=== PATIENT | female | born 1985 | race Caucasian/White ===

== ENCOUNTER 2017-08-12 13:13 | Emergency (ER) | payer MEDICAID ==
[2017-08-12 13:14] VITALS: BMI 26.4
[2017-08-12 13:21] VITALS: TEMP 98.4
[2017-08-12 14:54] LABS: BASO # 0.1 K/uL (0.0-0.2); BASO % 0.7 % (0.0-2.0); EOS # 0.2 K/uL (0.0-0.7); EOS % 2.2 % (0.0-4.0); HEMOGLOBIN 12.4 g/dL (11.0-16.0); LYMPH # 2.9 K/uL (1.0-4.3); LYMPH % 28.5 % (20.0-40.0); MEAN CELL VOLUME 83.7 fL (81.0-99.0); MEAN CORPUSCULAR HEMOGLOBIN 28.8 pg (27.0-31.0); MEAN CORPUSCULAR HGB CONC 34.4 g/dL (33.0-37.0); MEAN PLATELET VOLUME 7.6 fL (7.2-11.7); MONO # 0.9 K/uL (0.0-0.8); MONO % 8.8 % (0.0-10.0); NEUT % 59.8 % (50.0-75.0); NRBC % 0.1 % (0.0-2.0); RBC 4.31 Mil/uL (3.80-5.20); WHITE BLOOD COUNT 10.1 K/uL (4.8-10.8)
[2017-08-12 14:57] LABS: SQUAMOUS EPITHIAL 3 /hpf (0-5); URINE BILIRUBIN NEGATIVE (NEGATIVE); URINE BLOOD NEGATIVE (NEGATIVE); URINE CLARITY Hazy (Clear); URINE COLOR Yellow (YELLOW); URINE GLUCOSE (UA) NORMAL (Normal); URINE LEUKOCYTE ESTERASE NEG Leu/uL (Negative); URINE PROTEIN NEGATIVE (NEGATIVE)
[2017-08-12 15:11] LABS: ALB/GLOB RATIO 1.2 (1.0-2.1); ALBUMIN 3.9 g/dL (3.5-5.0); ALT/SGPT 17 U/L (9-52); AST/SGOT 22 U/L (14-36); BLOOD UREA NITROGEN 10 mg/dL (7-17); CALCIUM 9.1 mg/dl (8.6-10.4); GFR AFRICAN-AMERICAN > 60; GFR NON-AFRICAN AMERICAN > 60; LIPASE 77 U/L (23-300)
--- NOTE | 2017-08-12 16:41 | US ---
PROCEDURE: OB Pelvic Ultrasound HISTORY: lower abdominal pain LMP: 06/12/2017 suggesting an estimated gestational age of 8 weeks 5 days. COMPARISON: Prior obstetric ultrasound 07/20/2017 from [facility]. FINDINGS: UTERUS: Gestational sac: There is a single viable intrauterine gestation identified within the endometrial cavity with the pole in and membrane identified as well yolk sac. The yolk sac measures 3.4 mm. cardiac activity is recorded 174 beats per minute with mean crown-rump length measuring 2.1 cm to corresponding to an estimated gestational age of 8 weeks 5 days. This represents essentially normal interval development compared prior obstetric ultrasound 07/20/2017. This is slightly discrepant from the mean sac diameter of 4.4 cm, which corresponds to 9 weeks 6 days. Mean CRL is however concordant with LMP derived dates of 8 weeks 5 days. There is a small echo lucency (2.9 x 0.6 x 2.1 cm) at the posterior inferior margins of the chorion suggesting a subchorionic hemorrhage likely of subacute or even early chronic time frame. Clinically correlate nevertheless. Date of delivery (Ultrasound estimated) : 03/15/2018. No definitive myometrial mass identified. Normal in size and appearance. CERVIX: Measures 5.0 cm. Long and closed. No cervical abnormality seen. RIGHT OVARY: Measures 3.3 x 1.3 x 3.0 cm. No mass lesion. Normal flow. LEFT OVARY: Measures 3.6 x 2.4 x 2.9 cm. No solid mass. Normal flow. 1.8 cm simple cyst seen at the left ovary which may represent a corpus luteum cyst though this is not definite. FREE FLUID: None. OTHER FINDINGS: None. IMPRESSION: A single viable intrauterine gestation identified with average ultrasonic age of 8 weeks 5 days, concordant with menstrual dates with somewhat discordant with mean sac diameter as discussed above. Cardiac activity recorded at 174 beats per minute. Normal interval development compared to prior obstetric ultrasound examination 07/21/2017 ([facility] [place]). A small subchorionic hemorrhage is appreciated likely subacute or possibly even early chronic time frame. Clinical correlation and sonographic follow-up are advised. Probable small left ovarian corpus luteum cyst 1.8 cm.
[2017-08-12 17:05] VITALS: BP 90/61; PULSE 62; RESP 18; O2SAT 100
--- NOTE | 2017-08-12 18:02 | C.PDOC ---
History Of Present Illness 32 y/o female currently presents to ED with complaints of low abdominal pain for "couple of days" with associated nausea and vomiting present all throughout . Patient denies vaginal bleeding, vaginal discharge, dysuria, hematuria or any other complaints at this time. Chief Complaint (Nursing): Abdominal Pain History Per: Patient History/Exam Limitations: no limitations Onset/Duration Of Symptoms: Days Current Symptoms Are (Timing): Still Present Location Of Pain/Discomfort: Suprapubic Past Medical History Reviewed: Historical Data, Nursing Documentation, Vital Signs Vital Signs: Last Vital Signs Temp 98.4 F 08/12/17 13:19 Pulse 62 08/12/17 17:04 Resp 18 08/12/17 17:04 BP 90/61 L 08/12/17 17:04 Pulse Ox 100 08/12/17 18:02 - Medical History PMH: No Chronic Diseases Surgical History: No Surg Hx - [facility] Procedures INJECT/INFUSE NEC (10/14/13) VENOUS PUNCTURE NEC (12/25/12) Family History: States: No Known Family Hx - Social History Hx Tobacco Use: No Hx Alcohol Use: No Hx Substance Use: No - Immunization History Hx Tetanus Toxoid Vaccination: No Hx Influenza Vaccination: No Review Of Systems Constitutional: Negative for: Fever, Chills Gastrointestinal: Positive for: Nausea, Vomiting, Abdominal Pain Genitourinary: Negative for: Dysuria, Hematuria, Vaginal Discharge, Vaginal Bleeding Skin: Negative for: Rash Physical Exam - Physical Exam Appears: Non-toxic, No Acute Distress Skin: Warm, Dry, No Rash Head: Atraumatic, Normacephalic Oral Mucosa: Moist Neck: Normal ROM, Supple Cardiovascular: Rhythm Regular Respiratory: Normal Breath Sounds, No Rales, No Rhonchi, No Wheezing Gastrointestinal/Abdominal: Soft, Tenderness (Minimal suprapubic), No Guarding, No Rebound Back: No CVA Tenderness Extremity: Normal ROM, Capillary Refill (<2 seconds) Neurological/Psych: Oriented x3, Normal Speech, Normal Cognition ED Course And Treatment - Laboratory Results Result Diagrams: 08/12/17 14:44 08/12/17 14:44 O2 Sat by Pulse Oximetry: 100 (RA) Pulse Ox Interpretation: Normal Disposition - Disposition Referrals: [facility] Ivana Collado, [Non-Staff] - Disposition: HOME/ ROUTINE Disposition Time: 16:40 Condition: GOOD Additional Instructions: Thank you for letting us take care of you today. The emergency medical care you received today was directed at your acute symptoms. If you were prescribed any medication, please fill it and take as directed. It may take several days for your symptoms to resolve. Return to the Emergency Department if your symptoms worsen, do not improve, or if you have any other problems. Please contact your doctor or call one of the physicians/clinics you have been referred to that are listed on the Patient Visit Information form that is included in your discharge packet. Bring any paperwork you were given at discharge with you along with any medications you are taking to your follow up visit. Our treatment cannot replace ongoing medical care by a primary care provider (PCP) outside of the emergency department. Thank you for allowing the [facility] team to be part of your care today. Take all your medication as prescribed everyday. Follow up with your [facility] doctor this week for re-evaluation and further management. Forms: [employer] ([employer]) - Clinical Impression Clinical Impression: Abdominal pain affecting , Ovarian cyst - Scribe Statement The provider has reviewed the documentation as recorded by the Shashankibyocasta Reyes All medical record entries made by the Shashankibyocasta were at my direction and personally dictated by me. I have reviewed the chart and agree that the record accurately reflects my personal performance of the history, physical exam, medical decision making, and the department course for this patient. I have also personally directed, reviewed, and agree with the discharge instructions and disposition.
== END 2017-08-12 17:05 | disposition home or self-care (01) ==
LOC: C.ER 13:13
DX: O34.81 Maternal care for other abnormalities of pelvic organs, first trimester (principal); N83.292 Other ovarian cyst, left side; R10.9 Unspecified abdominal pain; Z3A.08 8 weeks gestation of pregnancy